=== PATIENT | female | born 1990 | race Caucasian/White ===

== ENCOUNTER → 2019-10-04 09:58 | Outpatient (BNVA) | payer OTHER, SELFPAY | PROVIDERS: Visit Provider Nurse Practitioner Family | DX: J03.90 Acute tonsillitis, unspecified (principal); Z68.23 Body mass index [BMI] 23.0-23.9, adult | CPT/HCPCS: 87071; 87880 ==

== ENCOUNTER 2021-12-24 07:46 | Outpatient (CLI) | payer OTHER, SELFPAY ==
--- NOTE | 2021-12-24 07:53 | US_ITS ---
WS: [id number] THYROID ULTRASOUND HISTORY: Goiter, diffuse COMPARISON: None available. Right lobe: 1.5 cm x 1.1 cm x 4.6 cm (w x ap x l). Volume: 3.8 cm3. Normal size and echotexture. No significant are dominant nodules are present. Left lobe: 1.2 cm x 0.8 cm x 3.3 cm (w x ap x l). Volume: 1.6 cm3. Normal size and echotexture. Minimal heterogeneity in the lower pole. No discrete mass. No significan t or dominant nodules are present. Isthmus: 0.2 cm. US/US thyroid [id number] IMPRESSION: Unremarkable thyroid ultrasound. No suspicious masses or echogenic foci.
== END 2021-12-24 07:47 | disposition home or self-care (01) ==
LOC: RAD 07:47
PROVIDERS: PCP Internal Medicine; Visit Provider Internal Medicine
DX: E04.0 Nontoxic diffuse goiter (principal)
CPT/HCPCS: 76536

== ENCOUNTER 2024-12-22 09:13 | Outpatient (CLI) | payer OTHER, SELFPAY ==
--- NOTE | 2024-12-22 09:19 | MM_ITS ---
WS: [id number] BILATERAL SCREENING DIGITAL TOMOSYNTHESIS MAMMOGRAM WITH CAD HISTORY: SCREENING COMPARISON: None available. Bilateral CC and MLO views with tomosynthesis and synthetic mammography submitted. Computer aided detection analyzed. Breast composition: The breasts are extremely dense, which lowers the sensitivity of mammography. No suspicious masses, microcalcifications or architectural distortion. MM/MM scr BI tomosynthesis [id number] IMPRESSION: BI-RADS: 1 - Negative FOLLOW UP: 1 Year Follow-up
== END 2024-12-22 09:14 | disposition home or self-care (01) ==
LOC: RAD 09:15
PROVIDERS: PCP Internal Medicine; Visit Provider Internal Medicine
DX: Z12.31 Encounter for screening mammogram for malignant neoplasm of breast (principal); R92.343 Mammographic extreme density, bilateral breasts
CPT/HCPCS: 77063; 77067